=== PATIENT | female | born 1970 | race Caucasian/White ===

== ENCOUNTER 2020-04-01 10:16 | Inpatient (IN) | payer OTHER ==
[2020-04-01] VITALS (8 sets, daily range): BP systolic 130–164; BP diastolic 66–79; BMI 56.8
[~2020-04-01] VITALS: Ht 162.6 cm; Wt 150.3 kg
[2020-04-01] MEDS ORDERED: K-DUR20 MEQ PO (10:21)
[2020-04-01] MEDS ORDERED: LASIX40 MG PO (10:21)
[2020-04-01] MEDS ORDERED: METOPROLOL TART50 MG PO (10:22)
[2020-04-01] MEDS ORDERED: ULTRAM50 MG PO (10:22)
[2020-04-01] MEDS ORDERED: CYCLOBENZAPRINE10 MG PO (10:23)
[2020-04-01] MEDS ORDERED: VOLTAREN75 MG PO (11:22)
[2020-04-01 13:31] LABS: ANION GAP 12.9 mmol/L (8-16); APTT 31.4 SECONDS (22.8-39.4); CALCIUM 9.4 mg/dL (8.5-10.1); CARBON DIOXIDE 27.3 mmol/L (21.0-32.0); CREATININE - SERUM 0.9 mg/dL (0.6-1.3); INR 1.08 (0.85-1.17); POTASSIUM - SERUM 4.2 mmol/L (3.5-5.1)
[2020-04-01 13:34] LABS: BASOPHILS 0.2 % (0-2); EOSINOPHILS 1.1 % (0-7); HEMATOCRIT 42.3 % (36.0-48.0); HEMOGLOBIN 13.6 g/dL (12-16); IMMATURE GRANULOCYTES 0.2 % (0-5); LYMPHOCYTES 11.2 % (15-50); MCH 28.2 pg (26.0-34.0); MCHC 32.2 g/dL (31.0-37.0); MCV 87.8 fL (80.0-100.0); MEAN PLATELET VOLUME 9.6 fL (7.4-10.4); MONOCYTES 4.1 % (2-11); NEUTROPHILS 83.2 % (40-80); PLATELET COUNT 385 10x3/uL (130-400); RBC 4.82 10x6/uL (4.00-5.40); RDW 13.5 % (11.5-14.5); WBC 12.3 10x3/uL (4.8-10.8)
[2020-04-01 13:37] LABS: ALBUMIN 3.1 g/dL (3.4-5.0); BILIRUBIN - TOTAL 0.65 mg/dL (0.2-1.3); PROTEIN - SERUM 7.9 g/dL (6.4-8.2)
--- NOTE | 2020-04-01 16:18 | NUR ---
COVID-19 SWAB OBTAINED AND SENT TO [facility] LAB.
--- NOTE | 2020-04-01 16:58 | NUR ---
RECEIVED PT TO ROOM #2239 FROM ER VIA BED. NO ACUTE DISTRESS NOTED. DENIES PAIN AT THIS TIME. NS AT 150ML/HR TO PIV IN RIGHT HAND.
[2020-04-01 22:16] LABS: BILIRUBIN NEGATIVE (NEGATIVE); KETONE NEGATIVE (NEGATIVE); NITRITE NEGATIVE (NEGATIVE); UROBILINOGEN NORMAL (NORMAL); WHITE CELLS - URINE 0-5 /hpf (0-5)
[2020-04-01 22:17] LABS: BACTERIA MODERATE /hpf (NONE SEEN)
[2020-04-02 04:00] VITALS: BP 145/72
[2020-04-02 06:59] LABS: BASOPHILS 0.1 % (0-2); HEMATOCRIT 38.7 % (36.0-48.0); HEMOGLOBIN 12.5 g/dL (12-16); IMMATURE GRANULOCYTES 0.2 % (0-5); LYMPHOCYTES 21.6 % (15-50); MCH 28.7 pg (26.0-34.0); MCHC 32.3 g/dL (31.0-37.0); MCV 88.8 fL (80.0-100.0); MEAN PLATELET VOLUME 9.6 fL (7.4-10.4); NEUTROPHILS 70.1 % (40-80); PLATELET COUNT 355 10x3/uL (130-400); RBC 4.36 10x6/uL (4.00-5.40); RDW 13.4 % (11.5-14.5); WBC 10.3 10x3/uL (4.8-10.8)
--- NOTE | 2020-04-02 07:15 | NUR ---
PT IS RESTING IN BED WITH EYES OPEN. RESPIRATIONS ARE EVEN AND UNLABORED. FAMILY AT BEDSIDE. PT DENIES PRESENCE OF N/V/AT THIS TIME. PT DENIES PRESENCE OF NUMBNESS/TINGLING TO BUE AND BLE. BRUISING NOTED TO LLE. BLE PEDAL PULSES PALP AND BLE CAP REFILL IS < 3 SEC. O2 VIA NC @ 2L. PIV TO RIGHT HAND INFUSING WITHOUT DIFFICULTY PER ORDER. BED IS IN THE LOWEST POSITION. CALL LIGHT AND BEDSIDE TABLE ARE WITHIN REACH. SIDE RAILS X 2. PT DENIES FURTHER NEEDS. WILL CONT TO MONITOR.
--- NOTE | 2020-04-02 07:20 | NUR ---
STAR RECEIVED TO ADMINISTER PRE OP MEDICATION. WILL ADMINISTER PER ORDER. SEE EMAR.
[2020-04-02 07:44] LABS: ALBUMIN 2.7 g/dL (3.4-5.0); ALKALINE PHOSPHATASE 78 U/L (30-120); BILIRUBIN - TOTAL 0.74 mg/dL (0.2-1.3); CALC OSMOLALITY 283 mosm/kg (275-300); CALCIUM 8.5 mg/dL (8.5-10.1); CARBON DIOXIDE 27.9 mmol/L (21.0-32.0); CHLORIDE - SERUM 105 mmol/L (98-107); CREATININE - SERUM 0.8 mg/dL (0.6-1.3); GLUCOSE 122 mg/dL (74-106); POTASSIUM - SERUM 4.3 mmol/L (3.5-5.1); PROTEIN - SERUM 6.3 g/dL (6.4-8.2); SODIUM 141 mmol/L (136-145); UREA NITROGEN 18 mg/dL (7-18); eGFR NON AFRICAN AMERICAN 80 mL/min (90-120)
[2020-04-02 07:46] LABS: ALT (SGPT) 35 U/L (10-68)
--- NOTE | 2020-04-02 09:38 | NUR ---
BONE FOAM AND BUMP UNDER LEFT HIP USED FOR OPTIMAL OPERATIVE POSITION. ALCOHOL AND BLUE TOWELS USED TO CLEAN ENTIRE LEG BEFORE CHLORAPREPPING.
[2020-04-02 13:55] VITALS: BP 154/75
--- NOTE | 2020-04-02 14:05 | NUR ---
PT ARRIVES TO ROOM VIA BED ESCORTED BY RECOVERY ROOM STAFF. PT IS AROUSABLE WITH VERBAL STIMULATION AND IS AAOX 4 UPON AROUSAL. DRESSING TO LEFT THIGH NOTED AND IS CDI. KNEE IMMOBILIZER ON LLE. PT REPORTS NUMBNESS TO LLE AND IS UNABLE TO WIGGLE TOES AT THIS TIME. PT DENIES PRESENCE OF PAIN/N/V. FAMILY IS AT BEDSIDE. FALL PRECAUTIONS IN PLACE. VSS. SEE FLOWSHEET. BED IS IN THE LOWEST POSITION. CALL LIGHT AND BEDSIDE TABLE ARE WITHIN REACH. SIDE RAILS X 2. PT DENIES FURTHER NEEDS. WILL CONT TO MONITOR.
--- NOTE | 2020-04-02 15:37 | NUR ---
Rehab Note- Acute Inpatient Rehab prescreen order received. The patient has [employer] insurance and will require a PreAuth prior to an inpatient acute rehab stay. She had surgery today. Will need PT & OT Eval for PreAuth process. Will follow at this time to await PT & OT Evals. Thank you for this referral! Janeth Hahn RN Clinical Liaison, [facility] Rehab
--- NOTE | 2020-04-02 18:25 | NUR ---
MODERATE AMOUNT OF BLOODY DRAINAGE NOTED TO LEFT HIP/UPPER THIGH DRESSING NOTED. DRESSING REINFORCED WITH 4X4 GUAZE AND TAPE. PT TOLERATED WELL.
--- NOTE | 2020-04-02 19:25 | NUR ---
MANY NEEDS SAW TO WELL TOTALL BED CHANGE AT THIS TIME BED LOW AND LOCKED AND CALL LIGHT IS IN REACH
[2020-04-02 20:00] VITALS: BP 138/93
[2020-04-03] VITALS (7 sets, daily range): BP systolic 121–161; BP diastolic 59–72
[2020-04-03 06:31] LABS: BASOPHILS 0.1 % (0-2); EOSINOPHILS 0.3 % (0-7); HEMATOCRIT 32.1 % (36.0-48.0); HEMOGLOBIN 10.3 g/dL (12-16); IMMATURE GRANULOCYTES 0.3 % (0-5); LYMPHOCYTES 20.5 % (15-50); MCH 28.2 pg (26.0-34.0); MCHC 32.1 g/dL (31.0-37.0); MCV 87.9 fL (80.0-100.0); MEAN PLATELET VOLUME 9.5 fL (7.4-10.4); MONOCYTES 9.7 % (2-11); NEUTROPHILS 69.1 % (40-80); PLATELET COUNT 315 10x3/uL (130-400); RBC 3.65 10x6/uL (4.00-5.40); RDW 13.6 % (11.5-14.5)
[2020-04-03 06:47] LABS: ALBUMIN 2.3 g/dL (3.4-5.0); ANION GAP 11.8 mmol/L (8-16); BILIRUBIN - TOTAL 0.39 mg/dL (0.2-1.3); CALCIUM 8.1 mg/dL (8.5-10.1); POTASSIUM - SERUM 3.8 mmol/L (3.5-5.1)
--- NOTE | 2020-04-03 17:07 | NUR ---
REhab Note- Attempted x4 with [facility] to be transferred to different "[employer]" insurance coverage to initiate PreAuth to reach a recording that their office is closed at this time. Will attempt to initiate PreAuth again on Monday. Thank you for this referral! Janeth Hahn RN Clinical Liaison, [facility] Rehab
[2020-04-04] VITALS (7 sets, daily range): BP systolic 142–185; BP diastolic 64–76
--- NOTE | 2020-04-04 05:16 | NUR ---
I have reviewed this patient and I concur with the Shift Assessment completed by the Licensed Practical Nurse today this shift.
[2020-04-04 06:27] LABS: BASOPHILS 0.2 % (0-2); EOSINOPHILS 2.8 % (0-7); HEMATOCRIT 31.5 % (36.0-48.0); HEMOGLOBIN 9.8 g/dL (12-16); IMMATURE GRANULOCYTES 0.5 % (0-5); LYMPHOCYTES 30.2 % (15-50); MCHC 31.1 g/dL (31.0-37.0); MEAN PLATELET VOLUME 9.8 fL (7.4-10.4); MONOCYTES 9.1 % (2-11); NEUTROPHILS 57.2 % (40-80); PLATELET COUNT 329 10x3/uL (130-400)
[2020-04-04 07:29] LABS: ALBUMIN 2.2 g/dL (3.4-5.0); ALKALINE PHOSPHATASE 81 U/L (30-120); ALT (SGPT) 35 U/L (10-68); BILIRUBIN - TOTAL 0.38 mg/dL (0.2-1.3); CALC OSMOLALITY 285 mosm/kg (275-300); CALCIUM 8.1 mg/dL (8.5-10.1); CARBON DIOXIDE 24.5 mmol/L (21.0-32.0); CHLORIDE - SERUM 108 mmol/L (98-107); CREATININE - SERUM 0.8 mg/dL (0.6-1.3); GLUCOSE 117 mg/dL (74-106); POTASSIUM - SERUM 3.9 mmol/L (3.5-5.1); PROTEIN - SERUM 5.7 g/dL (6.4-8.2); SODIUM 142 mmol/L (136-145); UREA NITROGEN 19 mg/dL (7-18); eGFR NON AFRICAN AMERICAN 80 mL/min (90-120)
[2020-04-05] VITALS (7 sets, daily range): BP systolic 134–178; BP diastolic 71–82
[2020-04-05 06:50] LABS: BASOPHILS 0.3 % (0-2); EOSINOPHILS 3.7 % (0-7); HEMATOCRIT 30.9 % (36.0-48.0); IMMATURE GRANULOCYTES 0.5 % (0-5); MCH 28.3 pg (26.0-34.0); MCHC 32.4 g/dL (31.0-37.0); MCV 87.5 fL (80.0-100.0); MEAN PLATELET VOLUME 9.7 fL (7.4-10.4); MONOCYTES 6.7 % (2-11); NEUTROPHILS 61.8 % (40-80); PLATELET COUNT 326 10x3/uL (130-400); RBC 3.53 10x6/uL (4.00-5.40); RDW 13.6 % (11.5-14.5)
[2020-04-05 07:03] LABS: ALBUMIN 2.2 g/dL (3.4-5.0); ALKALINE PHOSPHATASE 95 U/L (30-120); BILIRUBIN - TOTAL 0.42 mg/dL (0.2-1.3); CALC OSMOLALITY 280 mosm/kg (275-300); CALCIUM 8.4 mg/dL (8.5-10.1); CARBON DIOXIDE 27.5 mmol/L (21.0-32.0); CHLORIDE - SERUM 105 mmol/L (98-107); CREATININE - SERUM 0.7 mg/dL (0.6-1.3); GLUCOSE 126 mg/dL (74-106); MAGNESIUM - SERUM 1.9 mg/dL (1.8-2.4); POTASSIUM - SERUM 3.8 mmol/L (3.5-5.1); SODIUM 139 mmol/L (136-145); UREA NITROGEN 16 mg/dL (7-18); eGFR NON AFRICAN AMERICAN > 90 mL/min (90-120)
[2020-04-05 07:07] LABS: ALT (SGPT) 58 U/L (10-68)
--- NOTE | 2020-04-05 09:00 | NUR ---
ALERT AND ORIENTED X4. DRESSING INTACT TO LEFT LEG WITH BRACE. GENERALIZED EDEMA NOTED TO BLE WITH PEDAL PULSES NOTED. REQUIRES ASSIST WITH USE OF BEDPAN. LARGE BM NOTED THIS AM. HYDROCODONE GIVEN FOR PAIN 5/10 THIS AM OF EXTREMITY. ENCOURAGED USE OF CALL LIGHT FOR ASSSIT.
[2020-04-06] VITALS: BP 158/76
[2020-04-06 04:00] VITALS: BP 166/75
[2020-04-06 07:05] LABS: BASOPHILS 0.2 % (0-2); EOSINOPHILS 4.2 % (0-7); HEMATOCRIT 32.5 % (36.0-48.0); HEMOGLOBIN 10.2 g/dL (12-16); IMMATURE GRANULOCYTES 0.4 % (0-5); LYMPHOCYTES 26.8 % (15-50); MCH 27.6 pg (26.0-34.0); MCHC 31.4 g/dL (31.0-37.0); MCV 88.1 fL (80.0-100.0); MEAN PLATELET VOLUME 9.2 fL (7.4-10.4); NEUTROPHILS 62.4 % (40-80); PLATELET COUNT 374 10x3/uL (130-400); RBC 3.69 10x6/uL (4.00-5.40); RDW 13.3 % (11.5-14.5)
[2020-04-06 07:41] LABS: ALBUMIN 2.3 g/dL (3.4-5.0); ALKALINE PHOSPHATASE 90 U/L (30-120); ALT (SGPT) 44 U/L (10-68); BILIRUBIN - TOTAL 0.36 mg/dL (0.2-1.3); CALC OSMOLALITY 278 mosm/kg (275-300); CALCIUM 8.3 mg/dL (8.5-10.1); CARBON DIOXIDE 29.8 mmol/L (21.0-32.0); CHLORIDE - SERUM 105 mmol/L (98-107); CREATININE - SERUM 0.7 mg/dL (0.6-1.3); GLUCOSE 135 mg/dL (74-106); MAGNESIUM - SERUM 1.8 mg/dL (1.8-2.4); POTASSIUM - SERUM 3.9 mmol/L (3.5-5.1); PROTEIN - SERUM 5.6 g/dL (6.4-8.2); SODIUM 138 mmol/L (136-145); UREA NITROGEN 14 mg/dL (7-18); eGFR NON AFRICAN AMERICAN > 90 mL/min (90-120)
[2020-04-06 09:11] VITALS: BP 182/77
[2020-04-06 12:41] VITALS: BP 159/84
--- NOTE | 2020-04-06 15:28 | NUR ---
OT NOTE: PT REQUESTING TO GO TO BATHROOM IN AM. PT WAS UP IN CHAIR; SIT TO STAND WITH MOD ASSIST AND USE OF WALKER; MIN/MOD ASSIST FOR TRANSFER TO BS COMMODE; MAX ASSIST WITH TOILET HYGIENE. TRANSFER BACK TO CHAIR, HOWEVER, PT BECAME LIGHT HEADED AND HAD TO ASSIST PT TO CHAIR WITH MAX ASSIST X 2...ELEVATED LES AND PROVIDED WITH WET WASHCLOTH. PT FEELING BETTER IN APPROX 5 MIN. ABLE TO PERFORM ALL GROOMING TASKS WITH SET UP; EXT ASSIST WITH LE DRESSING. EDUCATED IN EXS TO BE PERFORMED AT CHAIR LEVEL. LINDA JAMIL, OTR/L [phone]
[2020-04-06 16:58] VITALS: BP 166/79
--- NOTE | 2020-04-06 17:26 | NUR ---
OT NOTE: PT COMPLETED BED MOB TASKS WITH MOD A. PT COMPLETED UB HYGIENE TASKS WITH BRAYAN. [phone] THANK YOU,OLGA RUIZ
--- NOTE | 2020-04-06 19:35 | NUR ---
LYING IN BED. ALERT AND ORIENTED X4. C/O PAIN IN LLE 6. IMMOBILIZER NOTED TO LLE. DRSG TO LT HIP IS C/D/I. EDEMA NOTED TO LLE. TELEMETRY SHOWS SR WITH RATE OF 78. IV OUT. REFUSES TO BE STUCK AT THIS TIME. DRINKING FLUIDS. PUREWICK CATH IN PLACE DRAINING CLEAR YELLOW URINE. DENIES NEEDS. SR ELEVATED X2. CL IN REACH.
[2020-04-06 20:00] VITALS: BP 161/69
--- NOTE | 2020-04-06 20:35 | NUR ---
MEDICATED WITH NORCO FOR C/O PAIN IN LT HIP/LEG RATING 6. CL IN REACH.
[2020-04-07] VITALS: BP 144/72
--- NOTE | 2020-04-07 01:00 | NUR ---
HAS RESTED WELL SO FAR THIS SHIFT. NO DISTRESS. CL IN REACH.
--- NOTE | 2020-04-07 02:35 | NUR ---
MEDICATED WITH NORCO FOR C/O PAIN IN LT HIP RATING 6. CL IN REACH.
[2020-04-07 04:00] VITALS: BP 144/77
--- NOTE | 2020-04-07 04:08 | NUR ---
REPOSITIONED FOR COMFORT. PADS CHANGED UNDER PT AT THIS TIME AND NEW ONES IN PLACE. PUREWICK WORKING PROPERLY. NO DISTRESS. CL IN REACH.
[2020-04-07 06:51] LABS: BASOPHILS 0.3 % (0-2); EOSINOPHILS 10.4 % (0-7); HEMATOCRIT 34.4 % (36.0-48.0); HEMOGLOBIN 10.7 g/dL (12-16); IMMATURE GRANULOCYTES 4.2 % (0-5); MCH 27.4 pg (26.0-34.0); MCHC 31.1 g/dL (31.0-37.0); MCV 88.2 fL (80.0-100.0); MEAN PLATELET VOLUME 9.3 fL (7.4-10.4); MONOCYTES 6.3 % (2-11); NEUTROPHILS 55.8 % (40-80); PLATELET COUNT 429 10x3/uL (130-400); RDW 13.3 % (11.5-14.5); WBC 8.8 10x3/uL (4.8-10.8)
[2020-04-07 07:13] LABS: ALBUMIN 2.5 g/dL (3.4-5.0); ALKALINE PHOSPHATASE 98 U/L (30-120); ALT (SGPT) 39 U/L (10-68); BILIRUBIN - TOTAL 0.38 mg/dL (0.2-1.3); CALC OSMOLALITY 279 mosm/kg (275-300); CALCIUM 8.7 mg/dL (8.5-10.1); CARBON DIOXIDE 30.1 mmol/L (21.0-32.0); CHLORIDE - SERUM 103 mmol/L (98-107); CREATININE - SERUM 0.8 mg/dL (0.6-1.3); GLUCOSE 122 mg/dL (74-106); POTASSIUM - SERUM 3.9 mmol/L (3.5-5.1); PROTEIN - SERUM 6.1 g/dL (6.4-8.2); SODIUM 139 mmol/L (136-145); UREA NITROGEN 16 mg/dL (7-18); eGFR NON AFRICAN AMERICAN 80 mL/min (90-120)
[2020-04-07 09:46] VITALS: BP 164/74
--- NOTE | 2020-04-07 10:12 | MORECARE ---
CASE MANAGEMENT DISCHARGE SUMMARY PATIENT: TREY MILLER UNIT: [id number] ADM DATE: 04/01/20 AGE: 49 : [birth year] SEX: F ROOM/BED: D.2239 AUTHOR: STEVE FERRELL PHYSICIAN: REFERRING PHYSICIAN: SYMONE HERNÁNDEZ MD DATE OF SERVICE: 04/07/20 Discharge Plan Patient Name: TREY MILLER Facility: [facility]:[place] : 1970 Planned Disposition: Inpatient Rehab Anticipated Discharge Date: Discharge Date: Expected LOS: Initial Reviewer: [email or web address] Initial Review Date: 04/01/2020 Generated: 04/07/20 11:11 am Comments DCP- Discharge Planning Updated by [email or web address]: Beckie Cavanaugh on 04/07/20 9:[address] Patient Name: TREY MILLER Admission Status: ER Accout number: [id number] Admission Date: 04-01-2020 : 1970 Admission Diagnosis:PAIN IN LEFT LOWER LEG Attending: ABDULLAHI Current LOS: 6 Anticipated DC Date: Planned Disposition: Inpatient Rehab Primary Insurance: [employer] PPO Discharge Planning Comments: CM met with patient at bedside after explaining CM role and obtaining verbal consent. CM discussed availability / needs of home health, REHAB and medical equipment. STATES WOULD BENEFIT FROM [facility], OLEG SIGNED FOR [facility] NP. CM TO FOLLOW AND ASSIST NEEDED. Vp Cardiovascular: Beckie Cavanaugh Patient Name: TREY MILLER Page [id number] at 1012 All edits/amendments must be made on the electronic document DICTATION DATE: 04/07/20 1011 HEAD BAKER: MUNDO 04/07/20 1011 RPT#: [id number] DC DATE: STATUS: ADM IN [facility] [address] [place] [address] END OF REPORT
--- NOTE | 2020-04-07 12:36 | NUR ---
OT NOTE: PT PERFORMED WELL TODAY. ABLE TO PERFORM UE DRSG AND SIMPLE GROOMING TASKS FROM BED/CHAIR LEVEL; EXTENSIVE ASSIST WITH LE DRESSING AT THIS TIME. BED MOB (SUPINE TO SIT) WITH MIN ASSIST FOR L LE MGMT; EOB SITTING WITH GOOD STATIC BALANCE; ABLE TO PERFORM UE EXS WHILE SITTING ON EOB. TRANSFER FROM BED TO CHAIR WITH WALKER AND MIN/MOD ASSIST. LINDA JAMIL, OTR/L [phone]
[2020-04-07 12:41] VITALS: BP 153/79
[2020-04-07 13:48] VITALS: Ht 162.6 cm; Wt 150.3 kg
--- NOTE | 2020-04-07 17:40 | NUR ---
OT NOTE: PT COMPLETED SITTING BALANCE WITH SBA. PT COMPLETED CHAIR PUSHUPS WITH MOD A. PT COMPLETED UE AROM WITH FUNCTIONAL TASKS. PT REQUIRED CUES TO MAINTAIN PRECAUTIONS. [phone] ALFONZO SALCIDO COTA
[2020-04-07 18:24] VITALS: BP 126/80
[2020-04-07 20:00] VITALS: BP 151/74
--- NOTE | 2020-04-07 20:00 | NUR ---
A&0 X 4, UPINE IN BED. PUREWIC IN USE. DRESSING TO LEFT THIGH CDI. LEG IMMOBILIZER ADJUSTED FOR COMFORT, PAIN 12/31. CTM.
--- NOTE | 2020-04-08 00:29 | NUR ---
I have reviewed this patient and I concur with the Shift Assessment completed by the Licensed Practical Nurse today this shift.
[2020-04-08 04:00] VITALS: BP 144/72
[2020-04-08 06:56] LABS: ALBUMIN 2.6 g/dL (3.4-5.0); ALKALINE PHOSPHATASE 99 U/L (30-120); ALT (SGPT) 37 U/L (10-68); BILIRUBIN - TOTAL 0.36 mg/dL (0.2-1.3); CALC OSMOLALITY 279 mosm/kg (275-300); CHLORIDE - SERUM 102 mmol/L (98-107); CREATININE - SERUM 0.8 mg/dL (0.6-1.3); GLUCOSE 140 mg/dL (74-106); POTASSIUM - SERUM 3.6 mmol/L (3.5-5.1); PROTEIN - SERUM 6.7 g/dL (6.4-8.2); SODIUM 138 mmol/L (136-145); UREA NITROGEN 17 mg/dL (7-18); eGFR NON AFRICAN AMERICAN 80 mL/min (90-120)
[2020-04-08 07:15] LABS: BASOPHILS 0.6 % (0-2); EOSINOPHILS 4.2 % (0-7); IMMATURE GRANULOCYTES 0.6 % (0-5); LYMPHOCYTES 19.9 % (15-50); MCH 27.8 pg (26.0-34.0); MCHC 31.4 g/dL (31.0-37.0); MCV 88.4 fL (80.0-100.0); MEAN PLATELET VOLUME 9.4 fL (7.4-10.4); NEUTROPHILS 62.7 % (40-80); PLATELET COUNT 426 10x3/uL (130-400); RBC 3.96 10x6/uL (4.00-5.40); RDW 13.5 % (11.5-14.5); WBC 6.7 10x3/uL (4.8-10.8)
--- NOTE | 2020-04-08 08:43 | OP ---
PATIENT NAME: TREY PROCTOR MEDICAL RECORD: [id number] :[birth year] LOCATION:D.MS [id number] ADMISSION DATE:04/01/20 SURGEON: SESAR LEIGH MD DATE OF OPERATION: 04/02/2020 PREOPERATIVE DIAGNOSIS: Left intercondylar distal femur fracture. POSTOPERATIVE DIAGNOSIS: Left intercondylar distal femur fracture. PROCEDURE PERFORMED: ORIF, left intercondylar distal femur fracture. INDICATIONS FOR PROCEDURE: Ms. Proctor is a 49-year-old female who fell approximately 10 days ago and injured her left knee. She complained of pain and inability to weight bear and initial x-rays were negative for fracture. She returned to [place] yesterday and x-rays showed distal femur fracture with slight displacement of the lateral femoral condyle. CT scan was obtained and showed an intraarticular split involving the distal femur and lateral femoral condyle. I talked to her about this condition and need for surgery. Risks, benefits, and alternatives of surgery were discussed with the patient and consent was obtained. DESCRIPTION OF PROCEDURE: The patient was met in the holding area where her identity and confirmation of procedure was performed. Left lower extremity was marked. She was taken to the operating room where she was placed supine on the operating table and anesthesia was administered. Left leg was prepped and draped in a sterile fashion. The patient received preoperative antibiotics and a time-out was performed before initiating the case. On initiation of the case, an anterolateral approach to the distal femur was utilized for exposure. We incised through the skin and subcutaneous tissues, dissecting down to the IT band and lateral retinaculum. Tissues were then split in line to allow for exposure into the knee joint and distal femur. A large hematoma was expressed from the knee joint. The tissues were exposed and the fracture was identified extending across the lateral femoral condyle and into the intercondylar notch. The fracture was debrided and irrigated thoroughly with saline. With manipulation and knee flexion, we were able to restore alignment of the condyle. We then placed a bdojy-dy-urjrs clamp anterior and posterior as well as a Claudy Tong clamp medial to lateral. With these clamps in place, we were able to obtain good compression at the articular surface and good alignment of our fracture pieces. Alignment was confirmed under imaging as well. We then placed 2 Cade headless compression screws. A 4-0 was placed anterior to posterior into the lateral femoral condyle. A second 5-0 screw was placed lateral to medial at the distal border of the femoral condyle to apply compression across the fracture site in that direction as well. This achieved good confucianism of our joint surface and compression. A 12-hole Biomet distal femur plate was then positioned along the lateral cortex of the distal femur and adjusted for position. It was then pinned into place both proximal and distal. A cortical screw was then placed through the #4 hole of the plate proximal to our fracture extending into the shaft. This component pressed the plate to the bone. We were then able to place 6 locking screws distally using the outrigger guide. We then placed 3 more cortical screws proximally to complete our fixation. Final images were obtained and showed good alignment and fixation of our fracture. Wounds were irrigated thoroughly with saline including the knee joint. The lateral retinaculum and IT band were closed with #1 Vicryl suture. Subcutaneous tissue was irrigated thoroughly as well. The subcutaneous tissue was closed with 2-0 Vicryl and the skin was closed with daron. A sterile dressing was OPERATIVE REPORT [id number] TREY PROCTOR placed. The patient was placed into a knee immobilizer and turned back over to anesthesia. She was awakened, extubated, and taken to recovery room in stable condition. POSTOPERATIVE PLAN: The patient is going to return to the floor for postoperative care. She needs to remain nonweightbearing on the left leg for 3 months. She needs to stay in her knee immobilizer for now but can come out with physical therapy to begin knee range of motion exercises. May need a course of rehab upon discharge. ANESTHESIA: General with peripheral nerve block. COMPLICATIONS: None. ESTIMATED BLOOD LOSS: 250 mL. NTS:[id number] Voice Confirmation ID: [id number] DOCUMENT ID: [id number] SESAR LEIGH MD at 0843 CC: [id number] DICTATION DATE: 04/02/20 1341 BLUNGER: 04/02/20 1950 ADM IN [place] [id number] [place] [id number]
[2020-04-08 09:25] VITALS: BP 159/81
--- NOTE | 2020-04-08 09:25 | NUR ---
RESTING IN BED, NO DISTRESS NOTED, PUREWICK IN PLACE, CONT TO MONITOR PAIN
--- NOTE | 2020-04-08 09:50 | NUR ---
Rehab Note(Late Entry for 04/05/2020)- Was able to reach [facility] to initiate PreAut process & faxed clinicals in to [phone], Ref#[id number]. Janeth Hahn RN Clinical Liaison, [facility] Rehab
--- NOTE | 2020-04-08 09:52 | NUR ---
Rehab Note- [facility] Contacted Alma Kelly RN at [phone] Ext [phone], voicemail left to clarify if was a mistake for SNF stay instead of Acute Rehab stay. Will await clarification at this time. Janeth Hahn RN Clinical Liaison, [facility] Rehab
--- NOTE | 2020-04-08 12:25 | NUR ---
Rehab Note- Spoke with Tiff with [facility] and stated that she had approved a SNF stay and that she questioned if the patient was able to tolerate the 3hrs of therapy a day, gave a verbal that the patient is able to tolerate both PT and OT. Stated she will expedit case to medical reimbursement manager after I stated I had been attempting to get Auth on Tuesday 04/03. Will continue to await determination at this time. Janeth Hahn RN Clinical Liaison, [facility] Rehab
[2020-04-08 13:18] VITALS: BP 140/60
--- NOTE | 2020-04-08 14:59 | NUR ---
OT NOTE: PT UP IN CHAIR..STATES THAT SHE IS VERY WET THE PURE WIK WAS NOT FUNCTIONING PROPERLY. SIT TO STAND FROM CHAIR WITH WALKER, GAIT BELT, AND MOD ASSIST X 2; CLEANED PT AND PROVIDED CLEAN GOWN. TRANSFER FROM BED TO CHAIR WITH MIN/MOD ASSIST X 2.. PT BECOMES VERY ANXIOUS PRIOR TO GETTING TO BED. REQUIRES CUES TO SLOW DOWN. BACK TO BED WITH MIN ASSIST; REPOSITIONED UP IN BED WITHOUT ASSIST; REPLACED PUREWICK..PT PERFORMED GROOMING INCLUDING HAND AND FACE WASHING WITH SET UP LINDA JAMIL, OTR/L [phone]
--- NOTE | 2020-04-08 15:34 | NUR ---
Rehab Note- Dr Jamie Swartz's nurse, called [facility] contact to check with pending Auth. Received fax and call from Tiff with [facility] with approval for inpatient acute rehab stay for 7 day approval. Auth #[id number]. Thank you for this referral! Janeth Hahn RN Clinical Liaison, [facility] Rehab
[2020-04-08] MEDS ORDERED: ALBUTEROL2.5 MG/3 M UPD (16:19)
[2020-04-08] MEDS ORDERED: LOVENOX40 MG/0.4 SC (16:19)
[2020-04-08] MEDS ORDERED: HYDRALAZINE20 MG/ML IV (16:19)
[2020-04-08] MEDS ORDERED: NORCO-7.5 PO (16:20)
[2020-04-08] MEDS ORDERED: PROTONIX40 MG PO (16:20)
[2020-04-08] MEDS ORDERED: COLACE100 MG PO (16:20)
[2020-04-08] MEDS ORDERED: ACETAMINOPHEN325 MG PO (16:20)
[2020-04-08 16:57] VITALS: BP 140/79
--- NOTE | 2020-04-08 18:13 | NUR ---
REPORT CALLED TO [facility] IN REHAB,
--- NOTE | 2020-04-08 18:25 | NUR ---
TAKEN TO REHAB PER W/C ALONG WITH DC PAPERS,
--- NOTE | 2020-04-09 17:12 | MORECARE ---
CASE MANAGEMENT DISCHARGE SUMMARY PATIENT: TREY MILLER UNIT: [id number] ADM DATE: 04/01/20 AGE: 49 : 66 SEX: F ROOM/BED: D.2239 AUTHOR: STEVE FERRELL PHYSICIAN: REFERRING PHYSICIAN: SYMONE HERNÁNDEZ MD DATE OF SERVICE: 04/09/20 Discharge Plan Patient Name: TREY MILLER Facility: [facility]:[place] : 1970 Planned Disposition: Inpatient Rehab Anticipated Discharge Date: Discharge Date: 04/08/2020 Expected LOS: Initial Reviewer: [email or web address] Initial Review Date: 04/01/2020 Generated: 04/09/20 6:11 pm Comments DCP- Discharge Planning Updated by [email or web address]: Beckie Cavanaugh on 04/07/20 9:[address] Patient Name: TREY MILLER Admission Status: ER Accout number: [id number] Admission Date: 04-01-2020 : 1970 Admission Diagnosis:PAIN IN LEFT LOWER LEG Attending: ABDULLAHI Current LOS: 6 Anticipated DC Date: Planned Disposition: Inpatient Rehab Primary Insurance: [employer] PPO Discharge Planning Comments: CM met with patient at bedside after explaining CM role and obtaining verbal consent. CM discussed availability / needs of home health, REHAB and medical equipment. STATES WOULD BENEFIT FROM [facility], OLEG SIGNED FOR [facility]. CM TO FOLLOW AND ASSIST NEEDED. Rigger Apprentice: Beckie Cavanaugh Last DP export: 04/07/20 9:12 a Patient Name: TREY MILLER Page [phone] at 1712 All edits/amendments must be made on the electronic document DICTATION DATE: 04/09/201710 HOROLOGIST APPRENTICE: MUNDO 04/09/201710 RPT#: [id number] DC DATE:04/08/20 STATUS: DIS IN [facility] [address] [place] [address] END OF REPORT
== END 2020-04-08 18:25 | DRG 481 ==
LOC: D.ER 10:16 → D.MS 12:34
PROVIDERS: Emergency Medicine; Orthopaedic Surgery; ADMIT Family Medicine; ATTEND Family Medicine
PROC: 0QSC04Z Reposition Left Lower Femur with Internal Fixation Device, Open Approach (ICD-10-PCS; principal; 2020-04-02 07:30)
DX: S72.402A Unspecified fracture of lower end of left femur, initial encounter for closed fracture (principal); S82.292A Other fracture of shaft of left tibia, initial encounter for closed fracture; W19.XXXA Unspecified fall, initial encounter; I10 Essential (primary) hypertension; G89.29 Other chronic pain; M54.9 Dorsalgia, unspecified; D72.829 Elevated white blood cell count, unspecified

== ENCOUNTER 2020-04-08 16:10 | Inpatient (IN) | payer OTHER ==
[~2020-04-08] VITALS: Ht 162.6 cm; Wt 149.7 kg
[~2020-04-08 16:10] MED LIST: CYCLOBENZAPRINE10 MG PO; K-DUR20 MEQ PO; LASIX40 MG PO; METOPROLOL TART50 MG PO; ULTRAM50 MG PO; VOLTAREN75 MG PO
[2020-04-08] MEDS ORDERED: ALBUTEROL2.5 MG/3 M UPD (16:19)
[2020-04-08] MEDS ORDERED: LOVENOX40 MG/0.4 SC (16:19)
[2020-04-08] MEDS ORDERED: HYDRALAZINE20 MG/ML IV (16:19)
[2020-04-08] MEDS ORDERED: NORCO-7.5 PO (16:20)
[2020-04-08] MEDS ORDERED: COLACE100 MG PO (16:20)
[2020-04-08] MEDS ORDERED: PROTONIX40 MG PO (16:20)
[2020-04-08] MEDS ORDERED: ACETAMINOPHEN325 MG PO (16:20)
--- NOTE | 2020-04-08 19:11 | NUR ---
PT ARRIVED VIA WC, ACCOMPANIED BY HOSP. STAFF WITH BELONGINGS. 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
[2020-04-08 19:52] VITALS: BP 136/68
[2020-04-08 22:15] VITALS: BP 136/68; BMI 56.8
--- NOTE | 2020-04-08 22:50 | NUR ---
PRN NORCO GIVEN FOR LEFT LEG PAIN 7 OF 10
--- NOTE | 2020-04-08 23:55 | NUR ---
PT ASLEEP AROUSES EASILY TO VOICE, RESPIRATION EVEN/UNLABORED, NO NEEDS NOTED, PT SAFETY PRECAUTIONS IN PLACE, FLUIDS/CALL LIGHT WITHIN REACH
--- NOTE | 2020-04-09 03:50 | NUR ---
PT HAS ELEVATED TEMP OF 99.5 DOWN FROM 101.1 AT 2100. PRN TYLENOL 650 MG GIVEN
[2020-04-09 06:46] LABS: BASOPHILS 0.6 % (0-2); EOSINOPHILS 2.7 % (0-7); HEMATOCRIT 35.7 % (36.0-48.0); HEMOGLOBIN 11.4 g/dL (12-16); IMMATURE GRANULOCYTES 0.6 % (0-5); LYMPHOCYTES 34.7 % (15-50); MCH 28.1 pg (26.0-34.0); MCHC 31.9 g/dL (31.0-37.0); MCV 88.1 fL (80.0-100.0); MEAN PLATELET VOLUME 9.4 fL (7.4-10.4); MONOCYTES 16.7 % (2-11); NEUTROPHILS 44.7 % (40-80); PLATELET COUNT 418 10x3/uL (130-400); RBC 4.05 10x6/uL (4.00-5.40); RDW 13.7 % (11.5-14.5); WBC 5.2 10x3/uL (4.8-10.8)
[2020-04-09 06:51] LABS: ANION GAP 10.7 mmol/L (8-16); CALCIUM 8.7 mg/dL (8.5-10.1); CARBON DIOXIDE 30.1 mmol/L (21.0-32.0); CREATININE - SERUM 0.9 mg/dL (0.6-1.3); POTASSIUM - SERUM 3.8 mmol/L (3.5-5.1)
--- NOTE | 2020-04-09 08:00 | NUR ---
PT RESTING IN BED WITH EYES OPEN CALL LIGHT IN REACH WILL MONITER
[2020-04-09 08:10] VITALS: BP 151/89
--- NOTE | 2020-04-09 11:25 | NUR ---
PATIENT ADMITTED TO [facility] FROM ACUTE FLOOR. DISCHARGE PLANS ARE FOR HER TO RETURN TO HER HOME. PATIENT IS NOT FEELING WELL THIS AM WILL COME AT ANOTHER TIME TO VISIT. WILL CONTINUE TO FOLLOW WITH PATIENT.
[2020-04-09 13:33] VITALS: Ht 162.6 cm; Wt 149.7 kg
--- NOTE | 2020-04-09 17:54 | NUR ---
PT RESTING IN BED WITH EYES OPEN CALL LIGHT IN REACH WILL MONITER
--- NOTE | 2020-04-09 19:08 | NUR ---
PT IN BED ON PHONE, TV ON, RESPIRATIONS EVEN/UNLABORED, NO IMMEDIATE NEEDS NOTED, FLUIDS/CALL LIGHT WITHIN REACH, PT REPORTS EXCESSIVE PAIN EARLIER TODAY AFTER THERAPY, PT A LITTLE EMOTIONAL AT THIS TIME AFRAID OF THE PAIN.
[2020-04-09 19:34] VITALS: BP 116/60
--- NOTE | 2020-04-10 00:45 | NUR ---
PT'S UA RESULTS CAME BACK NORMAL H&H A LITTLE LOW PLTS SLIGHT INCREASE NOT OUT ENOUGH TO CAUSE CONCERN
[2020-04-10 00:59] LABS: BILIRUBIN NEGATIVE (NEGATIVE); KETONE NEGATIVE (NEGATIVE); NITRITE NEGATIVE (NEGATIVE); UROBILINOGEN NORMAL mg/dL (< 2)
--- NOTE | 2020-04-10 01:22 | NUR ---
PT C/O 8 OF 10 LEG PAIN 2 PRN 7.5 NORCO GIVEN
--- NOTE | 2020-04-10 07:34 | NUR ---
SHE IS ALERT, TALKING. THE DRESSING TO THE LEFT HIP IS LOOSE, SMALL AMOUNT OF DRAINAGE. THE CALL LIGHT IS WITHIN.
[2020-04-10 08:00] LABS: ANION GAP 12.9 mmol/L (8-16); CALCIUM 8.8 mg/dL (8.5-10.1); CARBON DIOXIDE 26.7 mmol/L (21.0-32.0); CREATININE - SERUM 0.9 mg/dL (0.6-1.3); POTASSIUM - SERUM 3.6 mmol/L (3.5-5.1)
[2020-04-10 08:14] LABS: BASOPHILS 0.4 % (0-2); EOSINOPHILS 2.6 % (0-7); HEMATOCRIT 36.9 % (36.0-48.0); HEMOGLOBIN 11.5 g/dL (12-16); IMMATURE GRANULOCYTES 1.1 % (0-5); LYMPHOCYTES 38.8 % (15-50); MCHC 31.2 g/dL (31.0-37.0); MCV 89.8 fL (80.0-100.0); MEAN PLATELET VOLUME 10.3 fL (7.4-10.4); MONOCYTES 11.1 % (2-11); PLATELET COUNT 345 10x3/uL (130-400); RBC 4.11 10x6/uL (4.00-5.40); RDW 14.1 % (11.5-14.5); WBC 5.7 10x3/uL (4.8-10.8)
--- NOTE | 2020-04-10 16:10 | NUR ---
NITZA ANDERSON, FROM DR. MORRIS'S SERVICE CHANGED THE DRESSING TO THE LEFT THIGH AREA, WITH THE IMMOBILIZER IN PLACE. THE CALL LIGHT IS WITHIN REACH.
[2020-04-10 19:56] VITALS: BP 139/74
--- NOTE | 2020-04-10 20:00 | NUR ---
PATIENT RECEIVED SITTING UP IN BED WATCHING TV. ASSESSMENT & VITAL SIGNS DONE. BED LOW. CALL LIGHT WITHIN REACH. WILL CONTINUE TO MONITOR.
--- NOTE | 2020-04-10 20:40 | NUR ---
PATIENT USED CALL LIGHT FOR ASSIST ONTO BED LLOYD. PATIENT HAD VOID ONLY. PATIENT CLEANED. BED LOW. CALL LIGHT WITHIN REACH. WILL CONTINUE TO MONITOR.
--- NOTE | 2020-04-11 00:06 | NUR ---
I have reviewed this patient and I concur with the Shift Assessment completed by the Licensed Practical Nurse today this shift.
--- NOTE | 2020-04-11 00:38 | NUR ---
PATIENT EYES CLOSED. RESPIRATIONS 18 & EVEN. BED LOW. CALL LIGHT WITHIN REACH. WILL CONTINUE TO MONITOR.
--- NOTE | 2020-04-11 03:41 | NUR ---
PATIENT EYES CLOSED. RESPIRATIONS 18 & EVEN. BED LOW. IMMOBILIZER ON LEFT LEG. BED LOW. CALL LIGHT WITHIN REACH. WILL CONTINUE TO MONITOR.
--- NOTE | 2020-04-11 05:50 | NUR ---
PATIENT GIVEN PAIN MEDICATION FOR LEFT KNEE & LEG PAIN. PATIENT MINIMAL ASSIST ONTO BED LLOYD. VOID ONLY. MICHAEL AREA & BUTTOCKS CLEANED. BED LOW. ICE PACK TO LEFT KNEE. IMMOBILIZER ON. CALL LIGHT WITHIN REACH. WILL CONTINUE TO MONITOR.
[2020-04-11 07:00] VITALS: BP 158/84
--- NOTE | 2020-04-11 08:33 | NUR ---
SHE IS ALERT, TALKING. THE IMMOBILIZER IS ON THE LEFT LEG, THE DRESSING IS INTACT. SHE HAD A BM THIS MORRING. THE CALL LIGHT IS WITHIN REACH.
[2020-04-11 19:51] VITALS: BP 148/74
--- NOTE | 2020-04-11 19:57 | NUR ---
PATIENT RECEIVED LAYING BED WATCHING TV. LEFT LEG IMMOBILIZER ON & LEG ELEVATED ON PILLOW. ASSESSMENT & VITAL SIGNS DONE. NO C/O PAIN OR DISTRESS. BED LOW. CALL LIGHT & WATER WITHIN REACH. WILL CONTINUE TO MONITOR.
--- NOTE | 2020-04-12 01:56 | NUR ---
PATIENT USED CALL LIGHT FOR ASSIST. PATIENT PLACED ON BEDPAN, MINIMAL ASSIST. VOID ONLY. ICE PACK PLACED ON KNEE. IMMOBILIZER ON & PILLOWS UNDER LEFT LEG. PAIN LEVEL 8. PATIENT GIVEN 2 PAIN MEDICATION PILLS FOR LEVEL 8. PATIENT BED LOW, CALL LIGHT WITHIN REACH. WILL CONTINUE TO MONITOR.
[2020-04-12 07:33] VITALS: BP 146/72
--- NOTE | 2020-04-12 08:22 | NUR ---
THIS NURSE PLACED THE PATIENT ON THE BEDPAN. PT HAD BM. CLEANED PATIENT UP AND DELIVERED BREAKFAST TRAY. VITALS STABLE
--- NOTE | 2020-04-12 19:45 | NUR ---
PATIENT RECEIVED SITTING UP IN BED WATCHING TV. ASSESSMENT & VITAL SIGNS DONE. IMMOBILIZER ON LEFT LEG. NO C/O PAIN OR DISTRESS AT THIS TIME. BED LOW. CALL LIGHT WITHIN REACH. WILL CONTINUE TO MONITOR.
[2020-04-12 19:50] VITALS: BP 138/79
--- NOTE | 2020-04-12 20:51 | NUR ---
PATIENT C/O PAIN LEVEL 8 TO LEFT LEG & KNEE. PATIENT GIVEN 2 PAIN MEDICATIONS PER ORDER. BED LOW. CALL LIGHT WITHIN REACH. WILL CONTINUE TO MONITOR.
--- NOTE | 2020-04-12 22:00 | NUR ---
PATIENT IMMOBILIZER STRAPS LOOSENED. OLD DRESSINGS TAKEN OFF. CHUY INTACT ON ALL SITES. NEW DRESSINGS APPLIED TO INCISION SITES. ICE PACK APPLIED TO LEFT KNEE. IMMOBILIZER STRAPS TIGHTENED. LEFT LEG ELEVATED ON PILLOW. CALL LIGHT WITHIN REACH. WILL CONTINUE TO MONITOR.
--- NOTE | 2020-04-13 04:20 | NUR ---
PATIENT AWAKE USING CALL LIGHT FOR ASSIST. PATIENT TURNED TO LEFT SIDE. BED LLOYD PLACED UNDER BUTTOCKS. VOID ONLY. PATIENT PERIAREA & BUTTOCKS CLEANED. CLEAN DRAW SHEET PLACED UNDER BUTTOCKS. CALL LIGHT WITHIN REACH. WILL CONTINUE TO MONITOR.
[2020-04-13 06:29] LABS: BASOPHILS 0.2 % (0-2); EOSINOPHILS 6.9 % (0-7); HEMATOCRIT 34.6 % (36.0-48.0); HEMOGLOBIN 10.6 g/dL (12-16); IMMATURE GRANULOCYTES 0.6 % (0-5); MCH 27.5 pg (26.0-34.0); MCHC 30.6 g/dL (31.0-37.0); MCV 89.9 fL (80.0-100.0); MEAN PLATELET VOLUME 9.5 fL (7.4-10.4); MONOCYTES 10.8 % (2-11); NEUTROPHILS 44.5 % (40-80); PLATELET COUNT 392 10x3/uL (130-400); RBC 3.85 10x6/uL (4.00-5.40); RDW 14.2 % (11.5-14.5); WBC 5.1 10x3/uL (4.8-10.8)
[2020-04-13 06:47] LABS: ANION GAP 11.6 mmol/L (8-16); CALCIUM 8.6 mg/dL (8.5-10.1); CREATININE - SERUM 0.9 mg/dL (0.6-1.3); POTASSIUM - SERUM 3.6 mmol/L (3.5-5.1)
--- NOTE | 2020-04-13 12:45 | NUR ---
Nutrition Follow-up: Diet: Regular PO intake: ~92% average x last 9 meals. States that her appetite is "so-so." Last BM: 04/11/20. Wt: 330# (04/09/20) Meds noted: miralax, k-dur, lasix. Labs noted: Glu 121(H) Recommend continue current diet. RD following.
[2020-04-13 19:25] VITALS: BP 135/69
--- NOTE | 2020-04-13 20:00 | NUR ---
AWAKE AND ALERT. RESTING IN BED WITH RESPIRATIONS UNLABORED. LEFT LEG STABILIZER IN PLACE TO LEFT FEMUR FRACTURE. ICE PACK APPLIED TO UPPER LEFT LEG PER HER REQUEST. NO ACUTE DISTRESS NOTED. CALL LIGHT IN REACH.
--- NOTE | 2020-04-13 21:15 | NUR ---
MEDICATED FOR PAIN IN BONE AND MUSCLE OF LEFT LEG. SEE MAR. WILL MONITOR FOR EFFECTIVENESS.
--- NOTE | 2020-04-14 02:41 | NUR ---
SLEEPING WITH RESPIRATIONS UNLABORED. NO DISTRESS NOTED.
--- NOTE | 2020-04-14 05:00 | NUR ---
QUIET HOURS. NO ACUTE CHANGES IN CONDITION THIS SHIFT. RESTING IN BED WITH NO DISTRESS NOTED.
--- NOTE | 2020-04-14 07:42 | NUR ---
PT RESTING IN BED WITH EYES OPEN CALL LIGHT IN REACH WILL MONITER
[2020-04-14 08:01] VITALS: BP 148/81
--- NOTE | 2020-04-14 18:15 | NUR ---
PT RESTING IN BED WITH EYES OPEN CALL LIGHT IN REACH WILL MONITER
--- NOTE | 2020-04-14 19:31 | NUR ---
AWAKE AND ALERT. RESTING IN BED WITH RESPIRATIONS UNLABORED. IMMOBILIZER IN PLACE TO LEFT LEG. NO DISTRESS NOTED. CALL LIGHT IN REACH.
[2020-04-14 19:37] VITALS: BP 170/85
--- NOTE | 2020-04-15 01:09 | NUR ---
RESTING QUIETLY WITH RESPIRATIONS UNLABORED. NO DISTRESS NOTED.
--- NOTE | 2020-04-15 03:10 | NUR ---
AWAKE WATCHING TV. DENIES DISCOMFORTS OR NEEDS AT THIS TIME.
--- NOTE | 2020-04-15 05:14 | NUR ---
QUIET HOURS. NO ACUTE CHANGES IN CONDITION THIS SHIFT. RESTING IN BED WITH IMMOBILIZER IN PLACE TO LEFT LEG. NO DISTRESS NOTED.
[2020-04-15 06:33] LABS: BASOPHILS 0.2 % (0-2); HEMATOCRIT 35.6 % (36.0-48.0); IMMATURE GRANULOCYTES 0.2 % (0-5); LYMPHOCYTES 36.8 % (15-50); MCH 27.6 pg (26.0-34.0); MCHC 30.9 g/dL (31.0-37.0); MCV 89.4 fL (80.0-100.0); MEAN PLATELET VOLUME 9.3 fL (7.4-10.4); MONOCYTES 9.6 % (2-11); NEUTROPHILS 50.2 % (40-80); PLATELET COUNT 350 10x3/uL (130-400); RBC 3.98 10x6/uL (4.00-5.40); RDW 14.4 % (11.5-14.5); WBC 4.7 10x3/uL (4.8-10.8)
[2020-04-15 06:34] LABS: CALC OSMOLALITY 276 mosm/kg (275-300); CALCIUM 8.5 mg/dL (8.5-10.1); CHLORIDE - SERUM 104 mmol/L (98-107); CREATININE - SERUM 0.8 mg/dL (0.6-1.3); GLUCOSE 121 mg/dL (74-106); POTASSIUM - SERUM 3.4 mmol/L (3.5-5.1); SODIUM 138 mmol/L (136-145); UREA NITROGEN 13 mg/dL (7-18); eGFR NON AFRICAN AMERICAN 80 mL/min (90-120)
--- NOTE | 2020-04-15 07:37 | NUR ---
SHE IS ALERT, TOOK HER MEDICATIONS WITHOUT ANY PROBLEMS. DID NOT WANT A PAIN PILL THIS MORNING. THE CALL LIGHT IS WITHIN REACH.
[2020-04-15 08:00] VITALS: BP 149/84
--- NOTE | 2020-04-15 11:24 | NUR ---
DRESSING CHANGE TO THE LEFT THIGH/KNEE, CHUY INTACT WITHOUT REDNESS OR DRAINAGE. DRESSED WITH 4X4'S AND TAPE. SHE JUST GOT OUT OF THE SHOWER.
--- NOTE | 2020-04-15 13:40 | NUR ---
CARE TEAM MEETING: PATIENT IS PROGRESSING IN THERAPY. TENATIVE DC DATE IS 04/24/20. WILL CONTINUE TO FOLLOW WITH PATIENT. PATIENT WILL BE RA AT NEXT MEETING.
[2020-04-15 19:08] VITALS: BP 143/80
--- NOTE | 2020-04-15 20:00 | NUR ---
PATIENT RECEIVED SITTING UP IN BED WATCHING TV. ASSESSMENT & VITAL SIGNS DONE. IMMOBILIZER ON LEFT LEG. BED LOW. CALL LIGHT WITHIN REACH. WILL CONTINUE TO MMONITOR.
--- NOTE | 2020-04-16 02:34 | NUR ---
PATIENT EYES CLOSED. RESPIRATIONS 18 & EVEN. BED LOW. CALL LIGHT WITHIN REACH. WILL CONTINUE TO [facility].
--- NOTE | 2020-04-16 05:54 | NUR ---
PATIENT USED CALL LIGHT FOR ASSIST. MINIMAL ASSIST INTO & OUT OF WHEELCHAIR & ON & OFF COMMODE. VOID ONLY. RETURNED TO LOW BED. CALL LIGHT WITHIN REACH. WILL CONTINUE TO MONITOR.
--- NOTE | 2020-04-16 07:29 | NUR ---
REMOVED CHUY FROM THE LEFT THIGH/KNEE.
[2020-04-16 07:58] VITALS: BP 146/83
--- NOTE | 2020-04-16 08:32 | NUR ---
SHE IS ALERT, WORKING WITH THERAPY. PAIN MEDICATIONS GIVEN.
--- NOTE | 2020-04-16 09:12 | NUR ---
CLINICAL UPDATES FAXED TO ALDO RAMIREZ AT [phone], AUTH. # [id number] WITH A TENATIVE DC DATE OF 04/24/20. WILL CONTINUE TO FOLLOW WITH PATIENT.
--- NOTE | 2020-04-16 19:30 | NUR ---
RECEIVED SHIFT REPORT FROM DAY SHIFT
[2020-04-16 19:39] VITALS: BP 138/61
--- NOTE | 2020-04-16 19:41 | NUR ---
ASSESSMENT PER FLOW SHEET, LEFT LEFT INC WITH STERI STRIPS CDI WITH NO DRAINAGE NOTED, ICE PACK IN PLACE, PT REPORTS FLATUS, BM TODAY AND VOIDING WITH NO DIFFICULTY, PT INST ON AND DEMONSTRATED I.S. WITH GOOD EFFORT, PT C/O PAIN, ADM NORCO PER MD ORDERS, SEE EMAR, WITH FRESH H20, PT DENIES FURTHER NEEDS, FALL PRECAUTIONS IN PLACE
--- NOTE | 2020-04-16 21:30 | NUR ---
PT RESTING WITH EYES CLOSED, RESP QUIET, NO DISTRESS NOTED, LEFT UNDISTURBED AT THIS TIME TIME
--- NOTE | 2020-04-16 22:14 | NUR ---
PT AWAKE, ADM 2100 MED PER MD ORDERS, SEE EMAR, WITH FRESH H20, PT REQUESTED AND SERVED ALONZO PERRY, DENIES FURTHER NEEDS AT THIS TIME
--- NOTE | 2020-04-16 23:12 | NUR ---
PT AWAKE, WATCHING TV, DENIES NEEDS OR PAIN AT THIS TIME
--- NOTE | 2020-04-17 01:38 | NUR ---
PT AWAKE, C/O LEFT LEG PAIN, ADM PAIN MED PER MD ORDERS, SEE EMAR, PT UP TO BR VIA WC WITH ASSISTANCE, VOIDED WITH NO DIFFICULTY, DID MICHAEL CARE FOR PT, PT BACK TO BED, REQUESTED AND PROVIDED ICE PACK AND FRESH H20, DENIES FURTHER NEEDS, FALL PRECAUTIONS IN PLACE
--- NOTE | 2020-04-17 03:30 | NUR ---
PT RESTING WITH EYES CLOSED, RESP QUIET, NO DISTRESS NOTED, LEFT UNDISTURBED AT THIS TIME, FALL PRECAUTIONS IN PLACE
--- NOTE | 2020-04-17 06:08 | NUR ---
PT RESTING WITH EYES CLOSED, AROUSES TO SOFT VERBAL STIMULATION, ADM 0600 MED PER MD ORDERS, SEE EMAR, WITH FRESH H20, PT DENIES NEEDS AT THIS TIME
[2020-04-17 07:28] LABS: CALC OSMOLALITY 272 mosm/kg (275-300); CALCIUM 8.4 mg/dL (8.5-10.1); CARBON DIOXIDE 26.9 mmol/L (21.0-32.0); CHLORIDE - SERUM 103 mmol/L (98-107); CREATININE - SERUM 0.8 mg/dL (0.6-1.3); GLUCOSE 116 mg/dL (74-106); POTASSIUM - SERUM 3.6 mmol/L (3.5-5.1); SODIUM 136 mmol/L (136-145); UREA NITROGEN 13 mg/dL (7-18); eGFR NON AFRICAN AMERICAN 80 mL/min (90-120)
[2020-04-17 07:50] VITALS: BP 145/75
--- NOTE | 2020-04-17 07:53 | NUR ---
PATIENT IS ALERT/ORIENT. SITTING UP IN BED TO EAT BREAKFAST. CALL LIGHT WITHIN REACH. VOICES NO NEEDS AT THIS TIME.
[2020-04-17 08:14] LABS: BASOPHILS 0.2 % (0-2); EOSINOPHILS 1.4 % (0-7); HEMATOCRIT 33.7 % (36.0-48.0); HEMOGLOBIN 10.5 g/dL (12-16); LYMPHOCYTES 34.7 % (15-50); MCH 27.6 pg (26.0-34.0); MCHC 31.2 g/dL (31.0-37.0); MCV 88.7 fL (80.0-100.0); MEAN PLATELET VOLUME 9.8 fL (7.4-10.4); MONOCYTES 9.2 % (2-11); NEUTROPHILS 54.5 % (40-80); PLATELET COUNT 303 10x3/uL (130-400); RDW 14.4 % (11.5-14.5); WBC 5.7 10x3/uL (4.8-10.8)
--- NOTE | 2020-04-17 10:33 | NUR ---
Nutrition Follow-up: Diet: Regular PO intake: ~94% average x last 9 meals Last BM: 04/16/20. Wt: 330# (04/09/20) Meds noted: miralax, lasix, k-dur. Labs noted: Glu 116(H) Recommend continue current diet. RD following.
--- NOTE | 2020-04-17 10:59 | NUR ---
PATIENT IN REHAB ROOM. WORKING WITH PHYSICAL THERAPIST. DENIES ANY PAIN/DISC AT THIS TIME.
[2020-04-17 19:47] VITALS: BP 115/67
--- NOTE | 2020-04-17 20:00 | NUR ---
PATIENT RECEIVED LAYING IN BED. ASSESSMENT & VITAL SIGNS DONE. NO C/O PAIN OR DISTRESS AT THIS TIME. BED LOW. CALL LIGHT WITHIN REACH. WILL CONTINUE TO MONITOR.
--- NOTE | 2020-04-18 02:31 | NUR ---
I have reviewed this patient and I concur with the Shift Assessment completed by the Licensed Practical Nurse today this shift.
--- NOTE | 2020-04-18 04:17 | NUR ---
PATIENT EYES CLOSED. RESPIRATIONS 18 & EVEN. BED LOW. CALL LIGHT WITHIN REACH. WILL CONTINUE TO MONITOR.
--- NOTE | 2020-04-18 08:00 | NUR ---
PT RESTING IN BED WITH EYES OPEN CALL LIGHT IN REACH NO PROBLEMS WILL MONITER
[2020-04-18 10:56] VITALS: BP 130/67
--- NOTE | 2020-04-18 18:00 | NUR ---
PT RESTING IN BED WITH EYES OPEN CALL LIGHT IN REACH VOICES NO PROBLEMS WILL MONITER
--- NOTE | 2020-04-18 19:24 | NUR ---
PATIENT RECEIVED SITTING UP IN BED WATCHING TV. ASSESSMENT & VITAL SIGNS DONE. NO C/O PAIN OR DISTRESS AT THIS TIME. BED LOW. CALL LIGHT & TABLE AT BED SIDE TABLE WITHIN REACH. WILL CONTINUE TO MONITOR.
[2020-04-18 20:00] VITALS: BP 114/68
--- NOTE | 2020-04-19 00:50 | NUR ---
I have reviewed this patient and I concur with the Shift Assessment completed by the Licensed Practical Nurse today this shift.
--- NOTE | 2020-04-19 02:05 | NUR ---
PATIENT EYES CLOSED. RESPIRATIONS 18 & EVEN. BED LOW. TABLE & CALL LIGHT WITHINR EACH. WILL CONTINUE TO MONITOR.
--- NOTE | 2020-04-19 05:54 | NUR ---
PATIENT GIVEN PAIN MEDICATIONS PER ORDER. STANDBY ASSIST INTO & OUT OF WHEELCHAIR. THIS NURSE ASSISTED WITH PROPELLING WHEELCAHIR. STANDBY ASSIST ONTO & OFF OF COMMODE. VOID ONLY. RED AREA LINE & OPEN AREA TO MIDDLE OF BACK. PASTE APPLIED. WILL CONTINUE TO MONITOR. BED LOW. CALL LIGHT WITHIN REACH. WILL CONTINUE TO MONTOR.
[2020-04-19 08:00] VITALS: BP 123/55
--- NOTE | 2020-04-19 10:03 | NUR ---
PATIENT IS ALERT/ORIENT. SITTING UP IN BED WATCHING T.V. CALL LIGHT WITHIN REACH. VOICES NO NEEDS AT THIS TIME
--- NOTE | 2020-04-19 13:43 | NUR ---
PATIENT HELPED TO BATHROOM. TRANSFERED FROM BED TO WHEELCHAIR STAND BY ASST OF ONE
--- NOTE | 2020-04-19 19:15 | NUR ---
PT SITTING UP IN BED WATCHING TV. CL IN REACH. DENIES NEEDS AT THIS TIME. INTRODUCED SELF TO PT. A/O X4. CONTINENT OF URINE AND BOWEL. MINIMAL ASSIST TO BATHROOM. INCISION SITE INTACT WITH STERI STRIPS IN PLACE. WILL CONTINUE TO MONITOR.
[2020-04-19 19:49] VITALS: BP 124/64
--- NOTE | 2020-04-20 01:12 | NUR ---
I have reviewed this patient and I concur with the Shift Assessment completed by the Licensed Practical Nurse today this shift.
[2020-04-20 07:13] LABS: BASOPHILS 0.7 % (0-2); EOSINOPHILS 6.3 % (0-7); HEMATOCRIT 34.6 % (36.0-48.0); HEMOGLOBIN 10.8 g/dL (12-16); IMMATURE GRANULOCYTES 0.2 % (0-5); LYMPHOCYTES 37.2 % (15-50); MCH 27.9 pg (26.0-34.0); MCHC 31.2 g/dL (31.0-37.0); MCV 89.4 fL (80.0-100.0); MEAN PLATELET VOLUME 9.8 fL (7.4-10.4); MONOCYTES 10.2 % (2-11); NEUTROPHILS 45.4 % (40-80); PLATELET COUNT 321 10x3/uL (130-400); RBC 3.87 10x6/uL (4.00-5.40); RDW 14.4 % (11.5-14.5); WBC 5.7 10x3/uL (4.8-10.8)
[2020-04-20 07:28] LABS: CALC OSMOLALITY 284 mosm/kg (275-300); CALCIUM 8.9 mg/dL (8.5-10.1); CHLORIDE - SERUM 106 mmol/L (98-107); CREATININE - SERUM 0.8 mg/dL (0.6-1.3); GLUCOSE 120 mg/dL (74-106); POTASSIUM - SERUM 3.7 mmol/L (3.5-5.1); SODIUM 142 mmol/L (136-145); UREA NITROGEN 14 mg/dL (7-18); eGFR NON AFRICAN AMERICAN 80 mL/min (90-120)
[2020-04-20 08:01] VITALS: BP 153/78
--- NOTE | 2020-04-20 10:27 | NUR ---
SHE IS SETTING UP IN THE WHEELCHAIR, TOOK HER MEDICATIONS WITHOUT ANY PROBLEMS. THE CALL LIGHT IS WITHIN REACH.
--- NOTE | 2020-04-20 16:03 | NUR ---
CLINICAL UPDATES FAXED TO MORA SHEN , , AUTH. # [id number], WITH TENATIVE DC Date of 04/24/20. will continue to follow with patient.
[2020-04-20 19:26] VITALS: BP 119/69
--- NOTE | 2020-04-20 19:43 | NUR ---
PT IN BED WATCHING TV, NO NEEDS NOTED AT THIS TIME, RESPIRATIONS EVEN/UNLABORED, FALL PRECAUTIONS IN PLACE, FLUIDS/CALL LIGHT WITHIN REACH
--- NOTE | 2020-04-20 19:56 | NUR ---
PT IN BED WATCHING TV, NO NEEDS NOTED AT THIS TIME, RESPIRATIONS EVEN/UNLABORED, FALL PRECAUTIONS IN PLACE, FLUIDS/CALL LIGHT WITHIN REACH
--- NOTE | 2020-04-21 02:00 | NUR ---
PT IN BED ASLEEP, AROUSES EASILY TO VOICE NO NEEDS NOTED AT THIS TIME, RESPIRATIONS EVEN/UNLABORED, FALL PRECAUTIONS IN PLACE, FLUIDS/CALL LIGHT WITHIN REACH
--- NOTE | 2020-04-21 05:04 | NUR ---
PT IN BED ASLEEP,AROUSES EASILY TO VOICE NO NEEDS NOTED AT THIS TIME, RESPIRATIONS EVEN/UNLABORED, FALL PRECAUTIONS IN PLACE, FLUIDS/CALL LIGHT WITHIN REACH
--- NOTE | 2020-04-21 07:51 | NUR ---
SHE IS ALERT, GOING TO THE BATHROOM WITH 1 PERSON ASSIST USING THE WHEELCHAIR. STERI STRIPS TO THE LEFT THIGH/KNEE AREA WITHOUT REDNESS. SHE HAS A RED PLACE ON HER BACK, LOOKS LIKE HER CLOTHES RUBBED HER. I APPLIED A DRESSING TO THAT AREA. THE CALL LIGHT IS WITHIN REACH.
[2020-04-21 08:00] VITALS: BP 135/66
--- NOTE | 2020-04-21 09:24 | NUR ---
Nutrition Follow-up: Diet: Regular PO intake: 100% x most meals (~94% average x last 9 meals) Last BM: 04/19/20. Wt: 330# (04/09/20) Meds notes: k-dur, miralax, lasix. Labs noted: Glu 120(H) Recommend continue current diet. RD following.
[2020-04-21 18:47] VITALS: BP 144/72
--- NOTE | 2020-04-21 19:27 | NUR ---
PT IN BED WATCHING TV, RESPIRATIONS EVEN/UNLABORED, NO IMMEDIATE NEEDS NOTED, FALL PRECAUTIONS IN PLACE, FLUIDS/CALL LIGHT WITHIN REACH
--- NOTE | 2020-04-22 02:41 | NUR ---
PT ASLEEP, AROUSES EASILY TO VOICE RESPIRATIONS EVEN/UNLABORED, NO IMMEDIATE NEEDS NOTED, FALL PRECAUTIONS IN PLACE, FLUIDS/CALL LIGHT WITHIN REACH
[2020-04-22 07:23] VITALS: BP 132/64
--- NOTE | 2020-04-22 08:01 | NUR ---
PT RESTING IN BED EATING BREAKFAST TOLERATING WELL WILL MONITER
[2020-04-22 08:22] LABS: BASOPHILS 0.6 % (0-2); EOSINOPHILS 8.4 % (0-7); HEMATOCRIT 35.1 % (36.0-48.0); IMMATURE GRANULOCYTES 0.4 % (0-5); LYMPHOCYTES 38.6 % (15-50); MCH 27.8 pg (26.0-34.0); MCHC 31.3 g/dL (31.0-37.0); MCV 88.9 fL (80.0-100.0); MEAN PLATELET VOLUME 9.1 fL (7.4-10.4); MONOCYTES 9.6 % (2-11); NEUTROPHILS 42.4 % (40-80); PLATELET COUNT 350 10x3/uL (130-400); RBC 3.95 10x6/uL (4.00-5.40); RDW 14.4 % (11.5-14.5); WBC 5.1 10x3/uL (4.8-10.8)
[2020-04-22 08:23] LABS: CALC OSMOLALITY 275 mosm/kg (275-300); CALCIUM 8.9 mg/dL (8.5-10.1); CARBON DIOXIDE 27.4 mmol/L (21.0-32.0); CHLORIDE - SERUM 105 mmol/L (98-107); CREATININE - SERUM 0.8 mg/dL (0.6-1.3); GLUCOSE 121 mg/dL (74-106); POTASSIUM - SERUM 3.9 mmol/L (3.5-5.1); SODIUM 138 mmol/L (136-145); UREA NITROGEN 11 mg/dL (7-18); eGFR NON AFRICAN AMERICAN 80 mL/min (90-120)
--- NOTE | 2020-04-22 11:11 | NUR ---
I have reviewed this patient and I concur with the Shift Assessment completed by the Licensed Practical Nurse today this shift.
--- NOTE | 2020-04-22 13:42 | NUR ---
CARE TEAM MEETING: PATIENT IS PROGRSSING IN THERAPY. TENATIVE DC DATE IS 04/24/20. WILL CONTINUE TO FOLLOW WITH PATIENT.
--- NOTE | 2020-04-22 17:54 | NUR ---
PT RESTING IN BED WITH EYES OPEN CALL LIGHT IN REACH WILL MONITER
--- NOTE | 2020-04-22 19:04 | NUR ---
PT IN BED WATCHING TV RESPIRATIONS EVEN/UNLABORED, NO IMMEDIATE NEEDS NOTED, FALL PRECAUTIONS IN PLACE, FLUIDS/CALL LIGHT WITHIN REACH
[2020-04-22 19:56] VITALS: BP 149/67
--- NOTE | 2020-04-22 23:05 | NUR ---
PT ASLEEP, AROUSES EASILY TO VOICE, RESPIRATIONS EVEN/UNLABORED, NO IMMEDIATE NEEDS NOTED, FALL PRECAUTIONS IN PLACE, FLUIDS/CALL LIGHT WITHIN REACH
--- NOTE | 2020-04-23 07:19 | NUR ---
PT RESTING IN BED WITH EYES OPEN CALL LIGHT IN REACH WILL MONITER
[2020-04-23 07:45] VITALS: BP 144/70
[2020-04-23] MEDS ORDERED: NORCO-7.5 PO (08:38)
--- NOTE | 2020-04-23 18:21 | NUR ---
PT RESTING IN BED WITH EYES OPEN CALL LIGHT IN REACH WILL MONITER
--- NOTE | 2020-04-23 19:10 | NUR ---
PT SITTING UP IN BED WATCHING TV. CL IN REACH. DENIES NEEDS AT THIS TIME. BED IN LOW SIDE RAILS X2. RESP EVEN AND UNLABORED. A/O X4. INTRODUCED SELF TO PT. WILL CONTINUE TO MONITOR.
[2020-04-23 20:10] VITALS: BP 127/63
--- NOTE | 2020-04-24 01:00 | NUR ---
PT RESTING QUIETLY. NO DISTRESS NOTED. CL IN REACH. [facility] BED ALARM ON
--- NOTE | 2020-04-24 03:36 | NUR ---
I have reviewed this patient and I concur with the Shift Assessment completed by the Licensed Practical Nurse today this shift.
--- NOTE | 2020-04-24 07:24 | NUR ---
PT RESTING IN BED WITH EYES OPEN CALL LIGHT IN REACH WILL MONITER
[2020-04-24 07:56] VITALS: BP 126/69
--- NOTE | 2020-04-24 09:46 | NUR ---
PATIENT DISCHARGING HOME TODAY WITH FAMILY.[facility] WILL PROVIDE THERAPY AT HOME.[facility] WILL DELIVER A WHEELCHAIR TO PATIENT. DR. HERNANDES 04/30/20 @ 10:00, DR. LEIGH 05/15/20 @ 10:00. OLEG SIGNED, IMM SERVED AND EXPLAINED. ONE GIVEN TO PATIENT AND ONE FILED IN CHART. DISCHARGE INSTRUCTIONS FAXED TO PCP, [facility] AND TO [facility] (ALDO RAMIREZ AT , AUTH. # [id number] WITH FAX CONFORMATION RECIEVED) AND REVIEWED WITH PATIENT PER PRIMARY NURSE.
--- NOTE | 2020-04-24 09:52 | NUR ---
NO COMPARE DATA REVIEWED WPER PATIENT REQUEST.
--- NOTE | 2020-04-24 12:00 | NUR ---
PT DISCHARGED TO HOME VIA WHEELCHAIR WITH MEDS CALLED TO [facility] PT DISCHARGE INSTRUCTIONS AND DISCHARGE MEDS REVIEWED NO QUESTIONS OR CONCERNS
--- NOTE | 2020-04-26 15:46 | RHP ---
PATIENT: TREY MILLER MEDICAL RECORD: [id number] ACCOUNT: [id number] LOCATION:[id number] : 66 ADMISSION DATE: 04/08/20 REHABILITATION HISTORY AND PHYSICAL EXAMINATION POST ADMISSION PHYSICIAN EXAMINATION ADMITTING DIAGNOSIS: Closed fracture of her left distal femur. HISTORY OF PRESENT ILLNESS: The patient is a 49-year-old morbidly obese female that arrives with complaints of falling 10 days prior to midday with complaints of pain to her lower extremity. She has not been able to bear weight since that time. On the date of injury, she was seen in the [facility] ED. She was evaluated and noted to have an injury to her left knee and at that time her x-ray suggested there was no acute fracture or dislocation. There was an effusion. Orthopedic surgery was consulted as an outpatient. She was unable to bear weight and had appointment and came in and make it to her appointment. She came in via EMS. She was found to have a left femur, which showed a fracture of the distal femur including the lateral femoral condyle. The patient had orthopedic surgery consult. The patient underwent surgery on 04/02/2020. She has been receiving PT and OT and progressing well since the surgery. She is currently on supplemental O2. She is nonweightbearing status to her lower extremity. She has been monitored for pain control. The patient has been somewhat depressed during her stay. She has got postop anemia. Monitoring her I's and O's. She is on a stool softener. She is on anticoagulation for this. She is having proximal muscle weakness, fatigue, shortness of breath, debility, deconditioning, impaired mobility. She has got gait disturbance. She is a fall risk and has self-care deficits. These are barriers to her discharge home. She lives at home alone, was independent with ADLs and mobility prior to this. Currently, she is set-up for max assist for ADLs, mod to max assist for mobility with nonweightbearing status to her left extremity. She plans to be able to return home hopefully close to her prior level of functioning as possible. COMORBIDITIES: Include weakness, morbid obesity, knee pain, left distal femur fracture, fracture of the distal femur and distal lateral femoral condyle, hypertension, chronic back pain and leukocytosis. PAST MEDICAL HISTORY: Significant for hypertension and chronic back pain. PAST SURGICAL HISTORY: Includes hysterectomy, appendectomy, gallbladder surgery and right arm surgery. ALLERGIES: LISINOPRIL AND NORVASC. CURRENT MEDICATIONS: Include potassium 20 mEq daily, metoprolol 50 mg daily, furosemide 40 mg daily, she is on Lovenox 40 mg daily, she is on Protonix 40 mg daily, Colace 100 mg b.i.d., polyethylene glycol 17 grams in 8 ounces of water, she is on Bagley 7.5/325 one to two tabs every 4 to 6 hours p.r.n., she is on hydralazine 10 mg every 6 hours as needed for elevated systolic blood pressure, Flexeril 10 mg t.i.d. p.r.n., albuterol 2.5 mg as needed for updrafts and acetaminophen 650 every 6 hours p.r.n. HABITS: No current alcohol or tobacco use. FAMILY HISTORY: Noncontributory. HISTORY AND PHYSICAL [id number] TREY MILLER SOCIAL HISTORY: The patient hopes to return back home and get back to her prior level of functioning. REVIEW OF SYSTEMS: GENERAL: Does complain of weakness and fatigue. HEENT: Denies cold, cough, or congestion. CARDIOVASCULAR: Denies any chest pain. PHYSICAL EXAMINATION: VITAL SIGNS: Stable, afebrile. GENERAL: A morbidly obese female in no acute distress upon exam. HEENT: Normocephalic and atraumatic. Mucosa moist. NECK: Supple. No lymphadenopathy. LUNGS: Clear in upper meza with decreased breath sounds in the bases secondary to body habitus. CARDIOVASCULAR: Regular rate and rhythm. No murmurs, rubs, or gallops. ABDOMEN: Soft, benign and nondistended. Positive bowel sounds times 4. EXTREMITIES: Does have normal postop swelling in this area. NEUROLOGIC: She is mainly intact. She does have some proximal muscle weakness. LABORATORY DATA: Her white count is 5.2. Her H&H are 11 and 35, and platelet count is 418. Sodium is 139, potassium 3.8, BUN and creatinine of 15 and 0.9 and blood sugar is noted to be 131. It should be noted that she did note some temperature during the night with T-max of 101.1 with an elevated pulse rate at that time and a normal sat. ASSESSMENT: This 49-year-old female patient admitted to rehab with a working diagnosis of status post open reduction and internal fixation of a distal femur fracture. The patient has potential to make improvement. We instituted the following multidisciplinary therapies including, not limited to physical, occupational, respiratory, speech, nutritional services, prosthetics and orthotics. Given her complex medical condition and risks for more complications, rehabilitation services cannot be provided at a low level of care such as assisted facility. PLAN: 1. Admit to [facility] for inpatient therapy to include the following disciplines; A. Physical therapy to improve gait, all transfer skills and bed mobility to a modified independent level. B. Occupational therapy to improve activities of daily living. C. Case management to help with discharge planning and placement options. D. Nutrition to assist with nutritional needs. E. Rehabilitation nursing to assist in monitoring the patient's underlying medical conditions and to assist with any type of bowel or bladder management. 2. The patient's current medication and medical care will be continued. 3. The patient will be placed on standard fall precautions. 4. The patient's estimated length of stay is approximately 7-10 days. 5. I will go ahead and get a urinalysis on her and take a look at that to try to find some source of her infection if that is indeed what is causing her fever and I will followup in the a.m. TRANSINT:[id number] Voice Confirmation ID: [id number] DOCUMENT ID: [id number] HISTORY AND PHYSICAL [id number] TREY MILLER notes whether there has been none or any medical/functional change since admission: - No change since preadmission screen. SHARON attests patient continues to be appropriate for IRF: - Continues to be appropriate. MAHENDRA PADGETT MD at 1546 CC: [id number] DICTATION DATE: 04/09/20 0838 INDUSTRIAL ELECTRICIAN: 04/09/20 0935 DIS IN 04/24/20 [id number] [place] [id number]
== END 2020-04-24 14:00 | disposition home health service (06) | DRG 561 ==
LOC: D.REHAB 16:10
PROVIDERS: ADMIT Emergency Medicine; ATTEND Emergency Medicine
DX: S72.402D Unspecified fracture of lower end of left femur, subsequent encounter for closed fracture with routine healing (principal); W19.XXXD Unspecified fall, subsequent encounter; Z79.01 Long term (current) use of anticoagulants; M62.81 Muscle weakness (generalized); R53.83 Other fatigue; R06.02 Shortness of breath; R53.81 Other malaise; R26.9 Unspecified abnormalities of gait and mobility; E66.01 Morbid (severe) obesity due to excess calories; I10 Essential (primary) hypertension; D72.829 Elevated white blood cell count, unspecified; G89.29 Other chronic pain; S82.142D Displaced bicondylar fracture of left tibia, subsequent encounter for closed fracture with routine healing